=== PATIENT | female | born 1960 | race Caucasian/White ===

== ENCOUNTER 2016-07-22 19:00 | Emergency (ER) | payer MEDICAID, MEDICARE ==
[~2016-07-22] VITALS: Ht 172.7 cm; Wt 112.7 kg
[~2016-07-22 19:00] MED LIST: ACET-2605 PO; ASPI-973 PO; CALC600T12 PO; D 3 PO; GABA-500 PO; METO25TA6 PO; METO50TA3 PO; NAPR250T PO; POTA99TA25 PO
[2016-07-22 19:05] VITALS: BP 118/71; PULSE 81; RESP 18; O2SAT 97
--- NOTE | 2016-07-22 19:57 | ED.REPORT ---
HPI-Extremity Problem Lower Date of Service Jul 22, 2016 ED Provider: Joel Villalpando MD A 55 year old female with a medical history including uterine cancer, paroxysmal atrial fibrillation, and recurrent cellulitis of the lower legs presents to the ED from Urgent Care with right lower extremity redness and swelling onset 0 last night. The patient also reports fever (101.7 at UC) and chills. She denies calf pain, chest pain, shortness of breath, numbness, tingling, weakness, nausea, vomiting, or other symptoms. The patient also denies injury/trauma to her lower extremities. She has had similar symptoms in the past, associated with cellulitis. The patient took Ibuprofen 400mg 30 min prior to arrival. Nursing Notes Stated Complaint: CELLULITIS Chief Complaint: Extremity Trauma Nursing Notes Reviewed: Yes Allergies: Coded Allergies: No Known Allergies (Verified , 04/08/13) Scheduled ([D 3]) 10,000 IU PO DAILY Acetaminophen/Diphenhydramine (Tylenol Pm Ex-Strength Caplet) 500 Mg-25 Mg Tablet 1 EACH PO PRN Aspirin (Aspirin) 81 Mg Tablet 81 MG PO DAILY Calcium Carbonate (Calcium) 600 Mg Tablet 1,000 MG PO DAILY PLUS MAG CITRATE Cephalexin (Keflex) 500 Mg Capsule 500 MG PO QID Gabapentin (Gabapentin) 100 Mg Capsule 100 MG PO DAILY Metoprolol Tartrate (Metoprolol Tartrate) 25 Mg Tablet 25 MG PO HS Metoprolol Tartrate (Metoprolol Tartrate) 50 Mg Tablet 50 MG PO MORNING Potassium Gluconate (Potassium) 99 Mg Tablet 99 MG PO BID Scheduled PRN Naproxen (Naproxen) 250 Mg Tablet 500 MG PO BID PRN PRN For Pain General Time Seen by MD: 19:53 Chief Complaint Other (Right Lower Extremity Redness and Swelling) Hx Obtained From: Patient Arrived By: Walk-in Onset Occurred: Yesterday (Last Night) Symptom Duration: Since onset Severity: Current: No pain currently Severity: Maximum: No pain Pertinent Negative: Relieved by nothing Immunizations: Unknown Recent Healthcare: Recent doctor visit Similar Sx Previous: Yes Past Medical History Past Medical History 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 Respiratory: Denies: Non-productive cough, Shortness of breath Cardiovascular: Denies: Chest pain GI: Denies: Nausea, Vomiting Physical Exam Initial Vital Signs Vital Signs (First) Date Time Temp Pulse Resp B/P Pulse Ox O2 Delivery O2 Flow Rate FiO2 07/22/16 19:05 36.8 81 18 118/71 97 Room Air Initial VS: Reviewed Head / Eyes: Atraumatic, Normocephalic ENT: Conjunctiva normal, No scleral icterus Skin: Warm, Dry, No cyanosis Psychiatric: Mood/affect normal, Behavior normal, Normal thought content Lower Extremity / Pelvis / MS: Neurologic intact (Sensation intact), Vascular intact (Good DP and PT pulses, normal capillary refill to distal toes) Erythema and induration extending from the right ankle to just below the knee No unilateral calf swelling or tenderness General/Constitutional: Awake, Alert Respiratory / Chest: Breath sounds NL, Breath sounds = bilat, No respiratory distress Cardiovascular: Heart rate NL, Regular rhythm, Heart sounds NL, No gallop, No murmurs, No rubs Neurologic: Oriented X3, Speech NL, No motor deficits, No sensory deficits Abdomen: Soft, Non-tender, No distention Interpretation & Diagnostics Lab Results Interpretation Result Diagram: 07/22/16200307/22/162003 Test 07/22/16 20:04 White Blood Count 21.8th/mm3 (3.8-10.1) Red Blood Count 4.47mil/mm3 (3.90-5.20) Hemoglobin 14.1g/dL (12.0-15.6) Hematocrit 39.8% (35.0-46.0) Mean Corpuscular Volume 89.0fL (81-100) Mean Corpuscular Hemoglobin 31.5pg (27.0-35.0) Mean Corpuscular Hemoglobin Concent 35.4% (32.0-37.0) Red Cell Distribution Width 12.8% (12.3-15.4) Platelet Count 181bil/L (150-400) Neutrophils (%) (Auto) 89.8% (40-74) Lymphocytes (%) (Auto) 2.9% (14-46) Monocytes (%) (Auto) 6.1% (4-12) Eosinophils (%) (Auto) 0% (0-5) Basophils (%) (Auto) 0.1% (0-3) Sodium Level 136mEq/L (134-144) Potassium Level 3.7mEq/L (3.5-5.2) Chloride Level 98mEq/L (97-108) Carbon Dioxide Level 21mmol/L (18-29) Blood Urea Nitrogen 19mg/dL (6-24) Creatinine 0.89mg/dL (0.57-1.00) Estimat Glomerular Filtration Rate 94mL/min (>59) Glucose Level 129mg/dL (60-99) Lactic Acid Level 1.1mmol/L (0.4-2.0) Calcium Level 9.6mg/dL (8.5-10.1) Total Bilirubin 0.9mg/dL (0.0-1.2) Aspartate Amino Transf (AST/SGOT) 22U/L (0-50) Alanine Aminotransferase (ALT/SGPT) 20U/L (0-32) Alkaline Phosphatase 57U/L (25-150) Total Protein 7.0g/dL (6.4-8.4) Albumin 4.1g/dL (3.4-5.0) Re-Eval/Medical Decision Med Decision/Clinical Course A 55 year old female with a medical history including uterine cancer, paroxysmal atrial fibrillation, and recurrent cellulitis of the lower legs presents to the ED from Urgent Care with right lower extremity redness and swelling onset 2200 last night. The patient also reports fever (101.7 at UC) and chills. She denies calf pain, chest pain, shortness of breath, numbness, tingling, weakness, nausea, vomiting, or other symptoms. The patient also denies injury/trauma to her lower extremities. She has had similar symptoms in the past, associated with cellulitis. The patient took Ibuprofen 400mg 30 min prior to arrival. Here in the emergency department the patient is afebrile with stable vital signs and in no apparent distress. She is nontoxic appearing with erythema and induration of the right lower extremity as described above. She is neurovascularly intact in the right lower extremity. LABS: Leukocytosis 21.8 CBC otherwise unremarkable CMP unremarkable Lactate 1.1 My recommendation at this time is for duplex of the right lower extremity to rule out DVT. When presented with this the patient states that she has had an ultrasound before to rule out blood clot in the setting of identical symptoms that she has never had blood clots in her legs. The most recent ultrasound that I can find is from 2008 and it does in fact showed no DVT. That being said my recommendation remains for ultrasound to rule out DVT. Patient refuses study. Moreover, the patient refuses admission for IV antibiotics and further workup. I remained with concern for DVT the overall clinical presentation is most consistent with cellulitis. For that reason I treated her with 2 g of IV ceftriaxone and she will be discharged with a 10 day course of Keflex. I explained to the patient that my recommendation was for further workup and admission and she makes an informed choice to refuse my recommendations. The region of erythema has not circumscribed and she is advised to return should she develop any fevers, chills or spreading erythema. She will follow up with her primary care doctor. Prior to discharge follow-up and return precautions were reviewed in detail with the patient who verbalized understanding and agreement with the plan. The patient was discharged in stable condition. Source of Hx: Old records Re-Evaluation/Progress : Time of Eval: 21:51 Patient Status: Condition improved Re-Evaluation/Progress Note: Discussed with patient plan for US. She has had similar symptoms before and has had previous US to rule out blood clot. She declines lower extremity US. Discussed with patient lab results, diagnosis, and plan for discharge. Follow-up and return to the ER instructions given. Patient agrees with plan for care and all questions were addressed. Counseled Regarding: Diagnosis, Lab results, Need for follow-up, When/why to return to ED Discharge & Departure Impression: Primary Impression: Cellulitis Site of cellulitis: extremity Site of cellulitis of extremity: lower extremity Laterality: right Qualified Code: L03.115 - Cellulitis of right lower limb Additional Impressions: Right leg swelling Fever with chills Leukocytosis Leukocytosis type: unspecified Qualified Code: D72.829 - Elevated white blood cell count, unspecified History of cellulitis Disposition: Home Discharge Condition All VS Reviewed: Yes Condition: Improved Patient Instructions: Cellulitis (ED) Additional Instructions: Thank you for seeking care at the emergency room. It is difficult for us to make definitive diagnoses in the ED but we believe that you are experiencing cellulitis which is an infection in the skin on your leg. Our primary goal today in the ED was to evaluate you for any life-threatening conditions. Your evaluation was reassuring. We recommended admission as well as an ultrasound to make sure that you do not have a blood clot but he refused both of these. You will be discharged with a prescription for antibiotics, please take full course as directed. You should follow-up with your primary doctor in the next 1-3 days to be rechecked. You should return to the ED immediately if you develop increasing redness extending beyond the markings that were made on your leg, fevers, vomiting, cough, shortness of breath, chest pain, lightheadedness, weakness or any other concerning signs or symptoms. Thank you for letting us partake in your care today. Referrals: MIGUEL FORD MD (PCP) Kim[place] Attestation Portions of this note were transcribed by Tasneem Kwok. I, Dr. Villalpando, personally performed the history, physical exam, and medical decision-making; I reviewed and confirmed the accuracy of the information in the transcribed note. Signed by: Lucho Null, 07/22/2016, 23:45 copies to: MIGUEL FORD MD, Beck O MD Jul 22, 2016 19:56 TASNEEM KWOK Jul 22, 2016 21:53
[2016-07-22 20:13] LABS: EOSINOPHILS % (AUTO) 0 % (0-5)
[2016-07-22 20:16] LABS: BASOPHILS % (AUTO) 0.1 % (0-3); MONOCYTES % (AUTO) 6.1 % (4-12); Mean Corpuscular Hemoglobin 31.5 pg (27.0-35.0); NEUTROPHILS % (AUTO) 89.8 % (40-74); Platelet Count 181 bil/L (150-400)
[2016-07-22] MEDS ORDERED: cefTRIAXone Inj 2,000 MG in Dextrose 5% 50 ML IV STA (21:51)
[2016-07-22] MEDS ORDERED: CEPH-512 PO (21:53)
[2016-07-22] MEDS ORDERED: CeFAZolin Inj 2,000 MG in Dextrose 5% 50 ML IV SCH (22:05)
[2016-07-22] MEDS ORDERED: cefTRIAXone Inj 2,000 MG in Dextrose 5% 50 ML IV ONE (22:30)
[2016-07-22 23:12] VITALS: BP 142/82; PULSE 78; RESP 16; O2SAT 99
== END 2016-07-22 23:13 | disposition home or self-care (01) ==
LOC: SED 19:00
DX: L03.115 Cellulitis of right lower limb (principal); D72.829 Elevated white blood cell count, unspecified; R50.9 Fever, unspecified; I48.0 Paroxysmal atrial fibrillation; Z79.82 Long term (current) use of aspirin
CPT/HCPCS: 36415; 80053; 83605; 85025; 87040; 96365; 99284; G0463; J0696

== ENCOUNTER 2016-07-26 11:39 | Emergency (ER) | payer MEDICAID, MEDICARE ==
[~2016-07-26] VITALS: Ht 172.7 cm; Wt 109.1 kg
[~2016-07-26 11:39] MED LIST changes: +CEPH-512 PO
[2016-07-26 11:47] VITALS: BP 131/84; PULSE 75; RESP 18; O2SAT 98
--- NOTE | 2016-07-26 13:17 | ED.REPORT ---
HPI-Extremity Problem Lower Date of Service Jul 26, 2016 ED Provider: Doc,Ed MD The patient is a 55 year old female with history of endometrioid adenocarcinoma of uterus s/p hysterectomy, paroxysmal atrial fibrillation, and recurrent cellulitis, who presents to the emergency department complaining of a worsening right lower extremity infection. She was seen on Friday and started on Keflex. She has not had a fever since starting the antibiotics. She presents today requesting IV antibiotics and admission. Her last admission for cellulitis was in 2008. Nursing Notes Stated Complaint: CELLULITIS Chief Complaint: General Complaint Nursing Notes Reviewed: Yes Allergies: Coded Allergies: No Known Allergies (Verified , 04/08/13) Scheduled ([D 3]) 10,000 IU PO DAILY Acetaminophen/Diphenhydramine (Tylenol Pm Ex-Strength Caplet) 500 Mg-25 Mg Tablet 1 EACH PO PRN Aspirin (Aspirin) 81 Mg Tablet 81 MG PO DAILY Calcium Carbonate (Calcium) 600 Mg Tablet 1,000 MG PO DAILY PLUS MAG CITRATE Cephalexin (Keflex) 500 Mg Capsule 500 MG PO QID Gabapentin (Gabapentin) 100 Mg Capsule 100 MG PO DAILY Metoprolol Tartrate (Metoprolol Tartrate) 25 Mg Tablet 25 MG PO HS Metoprolol Tartrate (Metoprolol Tartrate) 50 Mg Tablet 50 MG PO MORNING Potassium Gluconate (Potassium) 99 Mg Tablet 99 MG PO BID Sulfamethoxazole/Trimeth 800-160 mg (Bactrim DS 800-160 mg) 1 Each Tablet 1 TABLET PO BID Scheduled PRN Naproxen (Naproxen) 250 Mg Tablet 500 MG PO BID PRN PRN For Pain General Time Seen by MD: 13:17 Chief Complaint Leg injury right Hx Obtained From: Patient Arrived By: Walk-in Onset Occurred: 3 days ago Symptom Duration: Since onset Location: : Leg right Quality: Painful Severity: Current: Mild Severity: Maximum: Moderate Pertinent Negative: Pt denies other symptoms Recent Healthcare: No recent hospitalization, Recent doctor visit Similar Sx Previous: Yes Past Medical History Past Medical History 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 Physical Exam Initial Vital Signs Vital Signs (First) Date Time Temp Pulse Resp B/P Pulse Ox O2 Delivery O2 Flow Rate FiO2 07/26/16 11:47 36.2 75 18 131/84 98 Room Air Initial VS: Reviewed Head / Eyes: Atraumatic, Normocephalic, PERRL ENT: Mucous membranes moist, Conjunctiva normal, No scleral icterus Neck: Supple, Non-tender, Full range of motion Respiratory: Breath sounds normal, Clear to auscultation, No respiratory distress Cardiovascular: Regular rate & rhythm, Heart sounds normal, Intact distal pulses Abdomen / GI: Soft, Non-tender, No guarding, No rebound, No distention Lymphatic: No lymphadenopathy Upper Extremities: Vascular intact, Neuro intact, No swelling, No tenderness Skin: Warm, Dry, No cyanosis Neurologic: Alert, Oriented, Nonfocal Psychiatric: Mood/affect normal, Behavior normal, Normal thought content Lower Extremity / Pelvis / MS: Neurologic intact, Vascular intact Symmetric erythema and swelling to her right calf. The erythema is minimally outside of the margins that were placed 5 days prior. General/Constitutional: Awake, Alert, Cooperative Interpretation & Diagnostics Lab Results Interpretation Result Diagram: 07/26/16 1338 07/26/16 1338 Test 07/26/16 13:38 White Blood Count 7.1th/mm3 (3.8-10.1) Red Blood Count 4.76mil/mm3 (3.90-5.20) Hemoglobin 14.6g/dL (12.0-15.6) Hematocrit 42.4% (35.0-46.0) Mean Corpuscular Volume 89.1fL (81-100) Mean Corpuscular Hemoglobin 30.7pg (27.0-35.0) Mean Corpuscular Hemoglobin Concent 34.4% (32.0-37.0) Red Cell Distribution Width 12.4% (12.3-15.4) Platelet Count 196bil/L (150-400) Neutrophils (%) (Auto) 71.0% (40-74) Lymphocytes (%) (Auto) 14.4% (14-46) Monocytes (%) (Auto) 12.0% (4-12) Eosinophils (%) (Auto) 1.0% (0-5) Basophils (%) (Auto) 0.8% (0-3) Sodium Level 141mEq/L (134-144) Potassium Level 4.0mEq/L (3.5-5.2) Chloride Level 101mEq/L (97-108) Carbon Dioxide Level 22mmol/L (18-29) Blood Urea Nitrogen 17mg/dL (6-24) Creatinine 0.65mg/dL (0.57-1.00) Estimat Glomerular Filtration Rate 135mL/min (>59) Glucose Level 108mg/dL (60-99) Calcium Level 9.5mg/dL (8.5-10.1) Total Bilirubin 0.4mg/dL (0.0-1.2) Aspartate Amino Transf (AST/SGOT) 22U/L (0-50) Alanine Aminotransferase (ALT/SGPT) 21U/L (0-32) Alkaline Phosphatase 75U/L (25-150) Total Protein 7.1g/dL (6.4-8.4) Albumin 3.6g/dL (3.4-5.0) Re-Eval/Medical Decision Med Decision/Clinical Course Minimal progression of her cellulitis however vital signs and labs are now normal without leukocytosis. Patient is insistent that this is not a DVT and declines lower extremity ultrasound, will start Bactrim and recommended follow-up in a few more days. Does not seem to meet inpatient criteria at this point. Return and follow-up precautions given Source of Hx: Old records Re-Evaluation/Progress : Time of Eval: 14:39 Re-Evaluation/Progress Note: Rechecked the patient. Discussed results, diagnosis, and plan for discharge. All questions were addressed. Counseled Regarding: Diagnosis, Lab results, Need for follow-up, When/why to return to ED Discharge & Departure Impression: Primary Impression: Cellulitis Site of cellulitis: extremity Site of cellulitis of extremity: lower extremity Laterality: right Qualified Code: L03.115 - Cellulitis of right lower limb Disposition: Home Discharge Condition All VS Reviewed: Yes Condition: Stable Patient Instructions: Cellulitis (ED) Additional Instructions: Thank you for entrusting us with your care today. Your lab results and exam findings are reassuring. I have written you a prescription for a new antibiotic called Bactrim. Make sure to take this medication as prescribed. Call your regular doctor today to schedule a followup appointment for early next week. Please return to the emergency department for any new or concerning symptoms. Referrals: MIGUEL FORD MD (PCP) [place] Attestation Portions of this note were transcribed by Cassandra Pillai. I, Dr. Saldana personally performed the history, physical exam and medical decision-making; I reviewed and confirmed the accuracy of the information in the transcribed note. Signed by: Lucho Liang, 07/26/2016 at 1502. copies to: MIGUEL FORD MD, Timothy S DO Jul 26, 2016 13:17 Cassandra Pillai Jul 26, 2016 13:23
[2016-07-26 13:50] LABS: BASOPHILS % (AUTO) 0.8 % (0-3); Mean Corpuscular Hemoglobin 30.7 pg (27.0-35.0); Mean Corpuscular Volume 89.1 fL (81-100); Platelet Count 196 bil/L (150-400)
[2016-07-26] MEDS ORDERED: Trimethoprim-Sulfa 160 mg-800 mg Tablet PO ONE (14:45)
[2016-07-26] MEDS ORDERED: SULF1TAB35 PO (14:52)
[2016-07-26 15:24] VITALS: BP 122/80; PULSE 80; RESP 15; O2SAT 95
== END 2016-07-26 15:20 | disposition home or self-care (01) ==
LOC: SED 11:39
DX: L03.115 Cellulitis of right lower limb (principal); Z79.82 Long term (current) use of aspirin